=== PATIENT | female | born 1975 | race American Indian/Alaskan Native ===

== ENCOUNTER 2017-10-04 06:24 | Emergency (ER) | payer MEDICAID ==
[2017-10-04 07:51] LABS: Basophils % (Auto) 0.9 % (0.0-1.8); Eosinophils # (Auto) 0.1 K/mm3 (0.0-0.4); Eosinophils % (Auto) 1.7 % (0.0-4.3); Hematocrit 44.2 % (30.3-42.9); Hemoglobin 14.6 gm/dl (10.1-14.3); Lymphocytes # (Auto) 1.9 K/mm3 (1.2-5.4); Lymphocytes % (Auto) 38.5 % (13.4-35.0); Mean Corpuscular HGB Conc 33 % (30-34); Mean Corpuscular Hemoglobin 27 pg (28-32); Mean Corpuscular Volume 83 fl (79-97); Monocytes # (Auto) 0.4 K/mm3 (0.0-0.8); Monocytes % (Auto) 7.6 % (0.0-7.3); Platelet Count 298 K/mm3 (140-440); Red Blood Count 5.31 M/mm3 (3.65-5.03); Red Cell Distribution Width 14.9 % (13.2-15.2)
[2017-10-04 08:04] LABS: BUN/Creatinine Ratio 17; Blood Urea Nitrogen 12 mg/dL (7-17); Calcium 8.9 mg/dL (8.4-10.2); Hemolysis Index 27
[2017-10-04 08:17] LABS: Bilirubin,Urine NEG (Negative); Blood,Urine LG (Negative); Color,Urine Yellow (Yellow); Mucus,Urine 2+ /HPF; Protein,Urine <15 mg/dL mg/dL (Negative); Urobilinogen,Urine < 2.0 mg/dL (<2.0)
[2017-10-04 08:19] LABS: RBC,Urine > 182.0 /HPF (0.0-6.0)
[2017-10-04 08:33] LABS: HCG Qualitative,Urine Negative (Negative)
[2017-10-04] MEDS ORDERED: CATAPRES PO ONE (10:22)
--- NOTE | 2017-10-04 11:26 | Emergency Department Report ---
HPI - General Chief Complaint: High BP Time Seen by Provider: 10/04/17 10:21 - HPI HPI: Room 3 The patient is a 42-year-old female presenting with a chief complaint of hypertension and headache. The patient states she went to her physician's office yesterday and was told her blood pressure is elevated. The patient states she is instructed to come to the emergency department. The patient states this morning she awakened with slight headache and felt somewhat foggy and decided to come in for evaluation. A craig admits to nausea but denies vomiting. Patient denies fever. The patient gets her pain is scored 3/10. The patient states she had been off of her blood pressure medication for approximately 2-3 months. Location: [See above] Duration: [See above] Quality: Headache Severity: 3/10 Modifying factors: [see above] Context: [see above] Mode of transportation: Unknown ED Past Medical Hx - Past Medical History Previous Medical History?: Yes Hx Hypertension: Yes Hx Arthritis: Yes (left knee) Additional medical history: Morbid obesity, Albert heel spurs, Diverticulosis - Surgical History Past Surgical History?: Yes Hx Cholecystectomy: Yes Additional Surgical History: x 2 - Family History Family history: no significant - Social History Smoking Status: Never Smoker Substance Use Type: Prescribed - Medications Home Medications: Home Medications Medication Instructions Recorded Confirmed Last Taken Type Losartan [Cozaar] 100 mg PO QDAY #60 tablet 10/04/17 Unknown Rx amLODIPine [Norvasc] 10 mg PO DAILY #60 tab 10/04/17 Unknown Rx ED Review of Systems ROS: Stated complaint: HIGH BLOOD PRESSURE Other details as noted in HPI Constitutional: denies: fever Eyes: denies: eye pain ENT: denies: throat pain Cardiovascular: denies: chest pain Gastrointestinal: nausea. denies: abdominal pain, vomiting Genitourinary: denies: dysuria Musculoskeletal: denies: back pain Neurological: headache Physical Exam - Physical Exam Vital Signs: Vital Signs 10/04/17 10/04/17 10/04/17 07:23 09:27 09:28 Temperature 97.8 F Pulse Rate 77 68 Respiratory 14 16 Rate Blood Pressure 171/109 Blood Pressure 200/132 [Left] O2 Sat by Pulse 98 100 Oximetry Vital Signs 10/04/17 10/04/17 10/04/17 07:23 09:27 09:28 Temperature 97.8 F Pulse Rate 77 68 Respiratory 14 16 Rate Blood Pressure 171/109 Blood Pressure 200/132 [Left] O2 Sat by Pulse 98 100 Oximetry 10/04/17 10/04/17 10:34 12:09 Temperature Pulse Rate 70 Respiratory Rate Blood Pressure 172/131 Blood Pressure 119/90 [Left] O2 Sat by Pulse Oximetry Physical Exam: GENERAL: The patient is well-developed well-nourished female lying on stretcher not appearing to be in acute distress. [] HEENT: Normocephalic. Atraumatic. Extraocular motions are intact. Patient has moist mucous membranes. NECK: Supple. No meningitic signs are noted. Trachea midline CHEST/LUNGS: Clear to auscultation. There is no respiratory distress noted. HEART/CARDIOVASCULAR: Regular. There is no tachycardia. There is no gallop rub or murmur. ABDOMEN: Abdomen is soft, nontender. Patient has normal bowel sounds. There is no abdominal distention. SKIN: There is no rash. There is no edema. There is no diaphoresis. NEURO: The patient is awake, alert, and oriented. The patient is cooperative. The patient has no focal neurologic deficits. The patient has normal speech. Cranial nerves II through XII grossly intact, no drift MUSCULOSKELETAL: There is no evidence of acute injury. ED Course Vital Signs 10/04/17 10/04/17 10/04/17 07:23 09:27 09:28 Temperature 97.8 F Pulse Rate 77 68 Respiratory 14 16 Rate Blood Pressure 171/109 Blood Pressure 200/132 [Left] O2 Sat by Pulse 98 100 Oximetry ED Medical Decision Making - Lab Data Result diagrams: 10/04/17 07:46 10/04/17 07:42 Laboratory Tests 10/04/17 10/04/17 10/04/17 07:42 07:45 07:46 WBC 4.9 RBC 5.31 H Hgb 14.6 H Hct 44.2 H MCV 83 MCH 27 L MCHC 33 RDW 14.9 Plt Count 298 Lymph % (Auto) 38.5 H [place] % (Auto) 7.6 H Eos % (Auto) 1.7 Baso % (Auto) 0.9 Lymph # 1.9 [place] # 0.4 Eos # 0.1 Baso # 0.0 Seg Neutrophils % 51.3 Seg Neutrophils # 2.5 Sodium 137 Potassium 4.3 Chloride 99.6 Carbon Dioxide 22 Anion Gap 20 BUN 12 Creatinine 0.7 Estimated GFR > 60 BUN/Creatinine Ratio 17 Glucose 106 H Calcium 8.9 Urine Color Yellow Urine Turbidity Clear Urine pH 5.0 Ur Specific [place] 1.017 Urine Protein <15 mg/dl Urine Glucose (UA) Neg Urine Ketones Neg Urine Blood Lg Urine Nitrite Neg Urine Bilirubin Neg Urine Urobilinogen < 2.0 Ur Leukocyte Esterase Neg Urine WBC (Auto) 22.0 H Urine RBC (Auto) > 182.0 U Epithel Cells (Auto) 2.0 Urine Mucus 2+ Urine HCG, Qual Negative - EKG Data -: EKG Interpreted by Ms EKG shows normal: sinus rhythm Rate: normal - EKG Data When compared to previous EKG there are: previous EKG unavailable Interpretation: nonspecific ST-T wave gen (flattened T-wave in lead 3) - Radiology Data Radiology results: report reviewed (CT head), image reviewed (CT head) [facility] [address] [place] [address] Cat Scan Report Signed Patient: MAHI ZIMMER MR#: [id number] : 1975 Acct:[id number] Age/Sex: 42 / F ADM Date: 10/04/17 Loc: ED Attending Dr: Ordering Physician: MERLY FREEMAN MD Date of Service: 10/04/17 Procedure(s): CT head/brain wo con Accession Number(s): [id number] cc: MERLY FREEMAN MD CRANIAL CT SCAN: Hypertension; headache. Serial contiguous axial images were obtained through the cranium. Intravenous contrast material was not administered. The ventricles are normal in size and appearance. There is no mass effect or midline shift. No areas of abnormally increased or decreased attenuation are seen. No mass lesion is seen. The mastoid air cells and visualized portions of the sinuses are normal. IMPRESSION: Cranial CT scan within normal limits. Transcribed By: [facility] Dictated By: GERALD JENKINS MD Electronically Authenticated By: GERALD JENKINS MD Signed Date/Time: 10/04/171123 DD/DT: 1123 TD/TT: 10/04/171123 - Differential Diagnosis hypertensive urgency, headache, ICH Critical care attestation.: If time is entered above; I have spent that time in minutes in the direct care of this critically ill patient, excluding procedure time. ED Disposition Clinical Impression: Hypertension, Headache Disposition: DC-01 TO HOME OR SELFCARE Is pt being admited?: No Does the pt Need Aspirin: No Condition: Stable Instructions: Hypertension (ED) Additional Instructions: Return to the emergency department immediately should you develop worsening symptoms, fever, inability to tolerate food or liquid or any other concerns. Prescriptions: amLODIPine [Norvasc] 10 mg PO DAILY #60 tab Losartan [Cozaar] 100 mg PO QDAY #60 tablet Referrals: PRIMARY CARE, [Primary Care Provider] - [place] (Please follow up with your primary physician for further management of her blood pressure) Time of Disposition: 12:10
--- NOTE | 2017-10-04 11:47 | Cat Scan Report ---
CRANIAL CT SCAN: Hypertension; headache. Serial contiguous axial images were obtained through the cranium. Intravenous contrast material was not administered. The ventricles are normal in size and appearance. There is no mass effect or midline shift. No areas of abnormally increased or decreased attenuation are seen. No mass lesion is seen. The mastoid air cells and visualized portions of the sinuses are normal. IMPRESSION: Cranial CT scan within normal limits.
[2017-10-04 12:11] VITALS: BP 119/90
== END 2017-10-04 12:37 | disposition home or self-care (01) ==
LOC: ED 06:24
DX: I10 Essential (primary) hypertension (principal); M13.862 Other specified arthritis, left knee
CPT/HCPCS: 36415; 70450; 80048; 81001; 81025; 85025; 93005; 93010; 99284

== ENCOUNTER 2017-10-20 18:33 | Emergency (ER) | payer MEDICAID ==
[2017-10-20] MEDS ORDERED: NACL 0.9% 1000 ML 1,000 ML IV ONE ×2 (18:59→23:59)
[2017-10-20 19:47] LABS: Bilirubin,Urine NEG (Negative); Blood,Urine MOD (Negative); Color,Urine Yellow (Yellow); Mucus,Urine FEW /HPF; Protein,Urine <15 mg/dL mg/dL (Negative)
[2017-10-20 19:59] LABS: Basophils # (Auto) 0.1 K/mm3 (0.0-0.1); Basophils % (Auto) 0.5 % (0.0-1.8); Eosinophils % (Auto) 0.4 % (0.0-4.3); Hematocrit 44.2 % (30.3-42.9); Hemoglobin 14.8 gm/dl (10.1-14.3); Lymphocytes # (Auto) 2.4 K/mm3 (1.2-5.4); Mean Corpuscular HGB Conc 34 % (30-34); Mean Corpuscular Hemoglobin 28 pg (28-32); Mean Corpuscular Volume 84 fl (79-97); Monocytes # (Auto) 0.9 K/mm3 (0.0-0.8); Monocytes % (Auto) 8.3 % (0.0-7.3); Platelet Count 245 K/mm3 (140-440); Red Blood Count 5.25 M/mm3 (3.65-5.03); Red Cell Distribution Width 14.5 % (13.2-15.2)
[2017-10-20 20:25] LABS: BUN/Creatinine Ratio 17; Blood Urea Nitrogen 12 mg/dL (7-17); Calcium 9.2 mg/dL (8.4-10.2)
[2017-10-20 20:26] LABS: Alanine Aminotransferase 12 units/L (7-56); Albumin 3.9 g/dL (3.9-5); Hemolysis Index 1
--- NOTE | 2017-10-20 22:24 | Emergency Department Report ---
ED Abdominal Pain HPI - General Chief Complaint: Abdominal Pain Stated Complaint: ADOMINAL PAIN Time Seen by Provider: 10/20/17 21:52 Source: patient Mode of arrival: Ambulatory Limitations: No Limitations - History of Present Illness Initial Comments: Ms vargas is a 42 year-old woman with hx of HTN and diverticulosis who presents with 2-3 days of abdominal pain. Lower abdomen, no radiation. No fever. No BMs. Yes nausea, no vomiting. Some urinary urgency, no burning. Hx of . No recent abx. No vaginal d/c. MD Complaint: abdominal pain -: Gradual Location: LLQ, RLQ Radiation: none Migration to: no migration Severity: moderate Quality: aching Consistency: constant Improves With: nothing Worsens With: nothing Associated Symptoms: nausea, constipation. denies: vomiting, diarrhea - Related Data Previous Rx's Medication Instructions Recorded Last Taken Type Losartan [Cozaar] 100 mg PO QDAY #60 tablet 10/04/17 Unknown Rx amLODIPine [Norvasc] 10 mg PO DAILY #60 tab 10/04/17 Unknown Rx Allergies Allergy/AdvReac Type Severity Reaction Status Date / Time No Known Allergies Allergy Unverified 10/04/17 07:22 ED Review of Systems ROS: Stated complaint: ADOMINAL PAIN Other details as noted in HPI Comment: All other systems reviewed and negative ED Past Medical Hx - Past Medical History Hx Hypertension: Yes Hx Arthritis: Yes (left knee) Additional medical history: Morbid obesity, Albert heel spurs, Diverticulosis - Surgical History Hx Cholecystectomy: Yes Additional Surgical History: x 2 - Social History Smoking Status: Never Smoker Substance Use Type: None - Medications Home Medications: Home Medications Medication Instructions Recorded Confirmed Last Taken Type Losartan [Cozaar] 100 mg PO QDAY #60 tablet 10/04/17 Unknown Rx amLODIPine [Norvasc] 10 mg PO DAILY #60 tab 10/04/17 Unknown Rx ED Physical Exam - General Limitations: No Limitations General appearance: alert, in no apparent distress - Head Head exam: Present: atraumatic, normocephalic - Eye Eye exam: Present: normal appearance, PERRL, EOMI - ENT ENT exam: Present: normal exam, mucous membranes moist - Neck Neck exam: Present: normal inspection. Absent: tenderness - Respiratory Respiratory exam: Present: normal lung sounds bilaterally. Absent: respiratory distress, wheezes, rales - Cardiovascular Cardiovascular Exam: Present: regular rate, normal rhythm. Absent: systolic murmur, diastolic murmur, rubs, gallop - GI/Abdominal GI/Abdominal exam: Present: soft, tenderness, normal bowel sounds. Absent: distended, guarding, rebound - Extremities Exam Extremities exam: Present: normal inspection - Back Exam Back exam: Present: normal inspection. Absent: CVA tenderness (R) - Neurological Exam Neurological exam: Present: alert, oriented X3 - Psychiatric Psychiatric exam: Present: normal affect, normal mood - Skin Skin exam: Present: warm, dry, intact, normal color. Absent: rash ED Course Vital Signs 10/20/17 10/20/17 10/20/17 18:54 21:58 22:00 Temperature 97.9 F 97.5 F L Pulse Rate 118 H 96 H Respiratory 18 18 Rate Blood Pressure 141/115 130/88 Blood Pressure 135/98 [Left] O2 Sat by Pulse 96 97 98 Oximetry 10/20/17 23:00 Temperature Pulse Rate Respiratory Rate Blood Pressure 131/91 Blood Pressure [Left] O2 Sat by Pulse 97 Oximetry ED Medical Decision Making - Lab Data Result diagrams: 10/20/17 19:31 10/20/17 19:31 - Radiology Data Radiology results: report reviewed PROCEDURE: CT ABDOMEN PELVIS W CON TECHNIQUE: Computerized axial tomography of the abdomen and pelvis was performed after the IV injection of iodinated nonionic contrast. HISTORY: abdominal pain COMPARISON: No prior studies are available for comparison. FINDINGS: Visualized lower thorax: No significant abnormality. Liver: Normal size and attenuation. Spleen: Normal size and attenuation. Gallbladder and biliary system: There has been a cholecystectomy. The bile ducts are normal in caliber.. Pancreas: Normal. Adrenals: Normal. Kidneys: Normal. GI tract: There is focal mucosal thickening of the sigmoid colon with induration of the surrounding fat suggesting focal acute colitis or diverticulitis. Underlying mass not excluded. There is no obstruction or perforation. The stomach, small bowel and appendix are normal.. Lymph nodes and mesentery: Normal. Vasculature: Normal. Bladder: Normal. Reproductive organs: Uterus and ovaries are unremarkable. Peritoneum: There is no ascites or free air, abscess or adenopathy.. Musculoskeletal structures: No significant abnormality. Other: None. IMPRESSION: There has been a cholecystectomy. The bile ducts are normal in caliber.. There is focal mucosal thickening of the sigmoid colon with induration of the surrounding fat suggesting focal acute colitis or diverticulitis. Underlying mass not excluded. There is no obstruction or perforation. The stomach, small bowel and appendix are normal.. Uterus and ovaries are unremarkable. There is no ascites or free air, abscess or adenopathy.. - Medical Decision Making ms vargas is a 42 year-old woman with left sided abdominal pain. hx of diverticular disease, feels like diverticulitis. Exam with mild ttp, not peritonitic. ddx constipation vs obstruction vs diverticulitis vs UTI. UA clean. WBC normal. Ct with evidence of diverticulitis. Cipro/flagyl and zofran. Given care instructions, return precautions. Safe for DC to home. Critical care attestation.: If time is entered above; I have spent that time in minutes in the direct care of this critically ill patient, excluding procedure time. ED Disposition Clinical Impression: Acute diverticulitis Disposition: DC-01 TO HOME OR SELFCARE Is pt being admited?: No Condition: Stable Instructions: Abdominal Pain (ED), Diverticulitis (ED) Referrals: DIMITRY DSOUZA MD [Primary Care Provider] - 3-5 Days
[2017-10-20 23:11] LABS: HCG Qualitative,Urine Negative (Negative)
--- NOTE | 2017-10-21 00:39 | Cat Scan Report ---
FINAL REPORT PROCEDURE: CT ABDOMEN PELVIS W CON TECHNIQUE: Computerized axial tomography of the abdomen and pelvis was performed after the IV injection of iodinated nonionic contrast. HISTORY: abdominal pain COMPARISON: No prior studies are available for comparison. FINDINGS: Visualized lower thorax: No significant abnormality. Liver: Normal size and attenuation. Spleen: Normal size and attenuation. Gallbladder and biliary system: There has been a cholecystectomy. The bile ducts are normal in caliber.. Pancreas: Normal. Adrenals: Normal. Kidneys: Normal. GI tract: There is focal mucosal thickening of the sigmoid colon with induration of the surrounding fat suggesting focal acute colitis or diverticulitis. Underlying mass not excluded. There is no obstruction or perforation. The stomach, small bowel and appendix are normal.. Lymph nodes and mesentery: Normal. Vasculature: Normal. Bladder: Normal. Reproductive organs: Uterus and ovaries are unremarkable. Peritoneum: There is no ascites or free air, abscess or adenopathy.. Musculoskeletal structures: No significant abnormality. Other: None. IMPRESSION: There has been a cholecystectomy. The bile ducts are normal in caliber.. There is focal mucosal thickening of the sigmoid colon with induration of the surrounding fat suggesting focal acute colitis or diverticulitis. Underlying mass not excluded. There is no obstruction or perforation. The stomach, small bowel and appendix are normal.. Uterus and ovaries are unremarkable. There is no ascites or free air, abscess or adenopathy..
[2017-10-21] MEDS ORDERED: LEVAQUIN PO ONE (01:15)
[2017-10-21] MEDS ORDERED: FLAGYL PO ONE (01:16)
[2017-10-21 01:19] VITALS: BP 136/82
== END 2017-10-21 01:35 | disposition home or self-care (01) ==
LOC: ED 18:33
DX: K57.92 Diverticulitis of intestine, part unspecified, without perforation or abscess without bleeding (principal); I10 Essential (primary) hypertension; Z90.49 Acquired absence of other specified parts of digestive tract
CPT/HCPCS: 36415; 74177; 80053; 81001; 81025; 85025; 96360; 99284; J7030; Q9967

== ENCOUNTER 2017-10-31 13:16 | Emergency (ER) | payer MEDICAID ==
[2017-10-31] MEDS ORDERED: ZOFRAN ODT ONE (13:42)
[2017-10-31] MEDS: ZOFRAN ODT PO ONE (13:46)
[2017-10-31 15:37] LABS: Basophils % (Auto) 0.4 % (0.0-1.8); Eosinophils % (Auto) 0.2 % (0.0-4.3); Hematocrit 44.7 % (30.3-42.9); Hemoglobin 14.8 gm/dl (10.1-14.3); Lymphocytes # (Auto) 1.3 K/mm3 (1.2-5.4); Lymphocytes % (Auto) 13.3 % (13.4-35.0); Mean Corpuscular HGB Conc 33 % (30-34); Mean Corpuscular Hemoglobin 28 pg (28-32); Mean Corpuscular Volume 84 fl (79-97); Monocytes # (Auto) 0.5 K/mm3 (0.0-0.8); Monocytes % (Auto) 5.1 % (0.0-7.3); Platelet Count 379 K/mm3 (140-440); Red Blood Count 5.34 M/mm3 (3.65-5.03); Red Cell Distribution Width 14.5 % (13.2-15.2)
[2017-10-31 15:52] LABS: Alanine Aminotransferase 10 units/L (7-56); Albumin 3.9 g/dL (3.9-5); BUN/Creatinine Ratio 26; Blood Urea Nitrogen 18 mg/dL (7-17); Calcium 9.1 mg/dL (8.4-10.2); Hemolysis Index 25; Lipase 10 units/L (13-60)
--- NOTE | 2017-10-31 18:18 | Emergency Department Report ---
ED Abdominal Pain HPI - General Chief Complaint: Abdominal Pain Stated Complaint: ABD PAIN AND LIGHT HEADED Time Seen by Provider: 10/31/17 17:47 Source: patient, family Mode of arrival: Ambulatory Limitations: No Limitations - History of Present Illness Initial Comments: This is a 42-year-old female here complaining of no bowel movement for 4-5 days , lower abdominal pain and nausea with some vomiting since this morning. She says she was recently seen for the same diagnosis with diverticulosis and didn' t finish her antibiotic course. Patient started her menses today. She has a history of hypertension and she is on amlodipine and losartan which she did not take today so she has elevated blood pressure without any symptoms. She was seen 10/21/2017 and treated for diverticulitis with ciprofloxacin, Zofran and Flagyl. MD Complaint: abdominal pain, other (nausea) Onset/Timin -: days(s) Location: LLQ, suprapubic Radiation: none Migration to: no migration Severity scale (0 -10): 8 Quality: cramping, fullness Consistency: intermittent Improves With: nothing Worsens With: nothing Context: other (constipation or bowel infection) Associated Symptoms: nausea, vomiting, constipation. denies: hematochezia, hematuria, anorexia, syncope, other, melena, diarrhea, fever, chills, dysuria, hematemesis Treatments Prior to Arrival: NSAIDs (Aleve) - Related Data LMP Date: 10/31/17 Previous Rx's Medication Instructions Recorded Last Taken Type Losartan [Cozaar] 100 mg PO QDAY #60 tablet 10/04/17 Unknown Rx amLODIPine [Norvasc] 10 mg PO DAILY #60 tab 10/04/17 Unknown Rx Ciprofloxacin HCl [Cipro] 500 mg PO BID 7 Days #14 tablet 10/21/17 Unknown Rx Ondansetron [Zofran Odt] 4 mg PO Q8HR PRN #10 tab.rapdis 10/21/17 Unknown Rx metroNIDAZOLE [Flagyl] 500 mg PO Q8HR 7 Days #21 tablet 10/21/17 Unknown Rx Bisacodyl [Dulcolax] 10 mg PO ONCE 1 Days #2 tab 10/31/17 Unknown Rx Magnesium Citrate [Citrate of 300 ml PO ONCE 1 Days #1 bottle 10/31/17 Unknown Rx Magnesia] Nitrofurantoin [place]/M-Cryst 100 mg PO Q12HR 7 Days #14 capsule 10/31/17 Unknown Rx [Macrobid CAP] Promethazine [Phenergan TAB] 25 mg PO Q8HR PRN #12 tab 10/31/17 Unknown Rx Allergies Allergy/AdvReac Type Severity Reaction Status Date / Time No Known Allergies Allergy Unverified 10/04/17 07:22 ED Review of Systems ROS: Stated complaint: ABD PAIN AND LIGHT HEADED Other details as noted in HPI Constitutional: denies: chills, fever Eyes: denies: eye pain, eye discharge ENT: denies: ear pain, throat pain, congestion Respiratory: denies: cough, shortness of breath, SOB with exertion, SOB at rest , stridor, wheezing Cardiovascular: denies: chest pain, palpitations, edema, syncope Gastrointestinal: abdominal pain, nausea, constipation. denies: diarrhea, hematemesis, melena, hematochezia Genitourinary: denies: urgency, dysuria, frequency, hematuria, discharge Musculoskeletal: denies: back pain, joint swelling, arthralgia, myalgia Skin: denies: rash, lesions Neurological: denies: headache, weakness ED Past Medical Hx - Past Medical History Previous Medical History?: Yes Hx Hypertension: Yes Hx Arthritis: Yes (left knee) Additional medical history: Morbid obesity, Albert heel spurs, Diverticulosis - Surgical History Past Surgical History?: Yes Hx Cholecystectomy: Yes Additional Surgical History: x 2 - Family History Family history: hypertension - Social History Smoking Status: Never Smoker Substance Use Type: None - Medications Home Medications: Home Medications Medication Instructions Recorded Confirmed Last Taken Type Losartan [Cozaar] 100 mg PO QDAY #60 tablet 10/04/17 Unknown Rx amLODIPine [Norvasc] 10 mg PO DAILY #60 tab 10/04/17 Unknown Rx Ciprofloxacin HCl [Cipro] 500 mg PO BID 7 Days #14 tablet 10/21/17 Unknown Rx Ondansetron [Zofran Odt] 4 mg PO Q8HR PRN #10 tab.rapdis 10/21/17 Unknown Rx metroNIDAZOLE [Flagyl] 500 mg PO Q8HR 7 Days #21 tablet 10/21/17 Unknown Rx Bisacodyl [Dulcolax] 10 mg PO ONCE 1 Days #2 tab 10/31/17 Unknown Rx Magnesium Citrate [Citrate of 300 ml PO ONCE 1 Days #1 bottle 10/31/17 Unknown Rx Magnesia] Nitrofurantoin [place]/M-Cryst 100 mg PO Q12HR 7 Days #14 capsule 10/31/17 Unknown Rx [Macrobid CAP] Promethazine [Phenergan TAB] 25 mg PO Q8HR PRN #12 tab 10/31/17 Unknown Rx ED Physical Exam - General Limitations: No Limitations General appearance: alert, in no apparent distress - Head Head exam: Present: atraumatic, normocephalic, normal inspection - Eye Eye exam: Present: normal appearance, PERRL, EOMI Pupils: Present: normal accommodation - ENT ENT exam: Present: normal exam, normal orophraynx, mucous membranes moist - Neck Neck exam: Present: normal inspection, full ROM. Absent: tenderness, lymphadenopathy - Respiratory Respiratory exam: Present: normal lung sounds bilaterally. Absent: respiratory distress, chest wall tenderness - Cardiovascular Cardiovascular Exam: Present: normal rhythm, tachycardia, normal heart sounds. Absent: systolic murmur, diastolic murmur - GI/Abdominal GI/Abdominal exam: Present: soft, distended, normal bowel sounds. Absent: tenderness, guarding, rebound, rigid, organomegaly, mass, bruit, pulsatile mass , hernia - Extremities Exam Extremities exam: Present: normal inspection, full ROM, normal capillary refill , other (no clubbing ,cyanosis or edema. +2 pulses to all extremities and no neurovascular compromise). Absent: tenderness, pedal edema, joint swelling, calf tenderness - Back Exam Back exam: Present: normal inspection - Neurological Exam Neurological exam: Present: alert, oriented X3, normal gait - Psychiatric Psychiatric exam: Present: normal affect, normal mood - Skin Skin exam: Present: warm, dry, intact, normal color. Absent: rash ED Course Vital Signs 10/31/17 10/31/17 10/31/17 13:33 21:10 22:58 Temperature 98.2 F 98.3 F Pulse Rate 113 H 94 H 94 H Respiratory 18 20 Rate Blood Pressure 148/105 Blood Pressure 145/112 [Right] O2 Sat by Pulse 96 99 Oximetry - Reevaluation(s) Reevaluation #1: 10/31/17 18:50 Patient is stable and was seen by Dr. Farley and was given Zofran 4 mg ODT. Still awaiting an IV. Reevaluation #2: 10/31/17 19:51 Unable to get IV on patient to give IV fluid and IV medication. Multiple tries attempted by different nurses with no success. Patient for CT scan of abdomen and pelvis with by mouth contrast only due to lack of IV access. She is to receive Percocet 08/3351 tablets by mouth. Abdominal exam remains the same. Reevaluation #3: 10/31/17 21:02 Patient is stable and no change in abdominal assessment. Her pain is controlled. Await and CT scan of abdomen and pelvis. She completed her by mouth contrast. Patient was given Percocet 2 tablets by mouth which relieved her pain. Vital signs are stable, she is afebrile and no change in abdominal assessment. Patient tolerated 2 cups of juice and one cup of water after CT scan done and resulted without any nausea or vomiting. ED Medical Decision Making - Lab Data Result diagrams: 10/31/17 15:00 10/31/17 15:00 Lab Results 10/31/17 10/31/17 10/31/17 Range/Units 15:00 15:00 15:00 WBC 9.6 (4.5-11.0) K/mm3 RBC 5.34 H (3.65-5.03) M/mm3 Hgb 14.8 H (10.1-14.3) gm/dl Hct 44.7 H (30.3-42.9) % MCV 84 (79-97) fl MCH 28 (28-32) pg MCHC 33 (30-34) % RDW 14.5 (13.2-15.2) % Plt Count 379 (140-440) K/mm3 Lymph % (Auto) 13.3 L (13.4-35.0) % [place] % (Auto) 5.1 (0.0-7.3) % Eos % (Auto) 0.2 (0.0-4.3) % Baso % (Auto) 0.4 (0.0-1.8) % Lymph # 1.3 (1.2-5.4) K/mm3 [place] # 0.5 (0.0-0.8) K/mm3 Eos # 0.0 (0.0-0.4) K/mm3 Baso # 0.0 (0.0-0.1) K/mm3 Seg Neutrophils % 81.0 H (40.0-70.0) % Seg Neutrophils # 7.8 H (1.8-7.7) K/mm3 Sodium 138 (137-145) mmol/L Potassium 3.9 (3.6-5.0) mmol/L Chloride 96.8 L (98-107) mmol/L Carbon Dioxide 23 (22-30) mmol/L Anion Gap 22 mmol/L BUN 18 H (7-17) mg/dL Creatinine 0.7 (0.7-1.2) mg/dL Estimated GFR > 60 ml/min BUN/Creatinine Ratio 26 % Glucose 121 H (65-100) mg/dL Calcium 9.1 (8.4-10.2) mg/dL Total Bilirubin 0.50 (0.1-1.2) mg/dL AST 16 (5-40) units/L ALT 10 (7-56) units/L Alkaline Phosphatase 81 (35-129) units/L Total Protein 7.0 (6.3-8.2) g/dL Albumin 3.9 (3.9-5) g/dL Albumin/Globulin Ratio 1.3 % Lipase 10 L (13-60) units/L HCG, Qual Negative (Negative) Urine Color (Yellow) Urine Turbidity (Clear) Urine pH (5.0-7.0) Ur Specific [place] (1.003-1.030) Urine Protein (Negative) mg/dL Urine Glucose (UA) (Negative) mg/dL Urine Ketones (Negative) mg/dL Urine Blood (Negative) Urine Nitrite (Negative) Urine Bilirubin (Negative) Urine Ictotest (Negative) Urine Urobilinogen (<2.0) mg/dL Ur Leukocyte Esterase (Negative) Urine WBC (Auto) (0.0-6.0) /HPF Urine RBC (Auto) (0.0-6.0) /HPF U Epithel Cells (Auto) (0-13.0) /HPF Urine Mucus /HPF 10/31/17 Range/Units Unknown WBC (4.5-11.0) K/mm3 RBC (3.65-5.03) M/mm3 Hgb (10.1-14.3) gm/dl Hct (30.3-42.9) % MCV (79-97) fl MCH (28-32) pg MCHC (30-34) % RDW (13.2-15.2) % Plt Count (140-440) K/mm3 Lymph % (Auto) (13.4-35.0) % [place] % (Auto) (0.0-7.3) % Eos % (Auto) (0.0-4.3) % Baso % (Auto) (0.0-1.8) % Lymph # (1.2-5.4) K/mm3 [place] # (0.0-0.8) K/mm3 Eos # (0.0-0.4) K/mm3 Baso # (0.0-0.1) K/mm3 Seg Neutrophils % (40.0-70.0) % Seg Neutrophils # (1.8-7.7) K/mm3 Sodium (137-145) mmol/L Potassium (3.6-5.0) mmol/L Chloride (98-107) mmol/L Carbon Dioxide (22-30) mmol/L Anion Gap mmol/L BUN (7-17) mg/dL Creatinine (0.7-1.2) mg/dL Estimated GFR ml/min BUN/Creatinine Ratio % Glucose (65-100) mg/dL Calcium (8.4-10.2) mg/dL Total Bilirubin (0.1-1.2) mg/dL AST (5-40) units/L ALT (7-56) units/L Alkaline Phosphatase (35-129) units/L Total Protein (6.3-8.2) g/dL Albumin (3.9-5) g/dL Albumin/Globulin Ratio % Lipase (13-60) units/L HCG, Qual (Negative) Urine Color María (Yellow) Urine Turbidity Clear (Clear) Urine pH 5.0 (5.0-7.0) Ur Specific [place] 1.034 H (1.003-1.030) Urine Protein 100 mg/dl (Negative) mg/dL Urine Glucose (UA) Neg (Negative) mg/dL Urine Ketones 20 (Negative) mg/dL Urine Blood Lg (Negative) Urine Nitrite Neg (Negative) Urine Bilirubin Sm (Negative) Urine Ictotest Negative (Negative) Urine Urobilinogen 4.0 (<2.0) mg/dL Ur Leukocyte Esterase Tr (Negative) Urine WBC (Auto) 20.0 H (0.0-6.0) /HPF Urine RBC (Auto) > 182.0 (0.0-6.0) /HPF U Epithel Cells (Auto) 2.0 (0-13.0) /HPF Urine Mucus 2+ /HPF Urine culture sent She has a large amount of blood in her urine due to the fact that she started her menses today. - Radiology Data Radiology results: report reviewed Patient: MAHI ZIMMER MR#: [id number] : 1975 Acct:[id number] Age/Sex: 42 / F ADM Date: 10/31/17 Loc: ED Attending Dr: Ordering Physician: JEFF SCHAEFER Date of Service: 10/31/17 Procedure(s): CT abdomen pelvis wo con Accession Number(s): [id number] cc: JEFF SCHAEFER FINAL REPORT PROCEDURE: CT ABDOMEN PELVIS WO CON TECHNIQUE: Computerized axial tomography of the abdomen and pelvis was performed without intravenous contrast. This study is performed without intravascular contrast material and its sensitivity for abdominal and pelvic pathology, including neoplasms, inflammation, abscess, free fluid, thrombosis, arterial dissection and infarction, is reduced compared with a contrast enhanced study. HISTORY: lower abdominal pain with h/o diverticulitis COMPARISON: No prior studies are available for comparison. FINDINGS: Visualized lower thorax: No significant abnormality. Liver: Normal size and attenuation. Spleen: Normal size and attenuation. Gallbladder and biliary system: There has been a cholecystectomy. The bile ducts are normal in caliber.. Pancreas: Normal. Adrenals: Normal. Kidneys: There are no kidney stones or ureteral stones. There is no hydronephrosis.. GI tract: There is a large amount of stool in the colon. There is no obstruction or fecal impaction. There is no bowel wall thickening to suggest colitis. The stomach and small bowel are unremarkable. The appendix is normal.. Lymph nodes and mesentery: Normal. Vasculature: Normal. Bladder: Normal. Reproductive organs: There is a fibroid at the uterine fundus measuring 7 centimeters.. Peritoneum: There is no ascites or free air, abscess or adenopathy.. Musculoskeletal structures: No significant abnormality. Other: None. IMPRESSION: There has been a cholecystectomy. The bile ducts are normal in caliber.. There are no kidney stones or ureteral stones. There is no hydronephrosis.. There is a large amount of stool in the colon. There is no obstruction or fecal impaction. There is no bowel wall thickening to suggest colitis. The stomach and small bowel are unremarkable. The appendix is normal.. There is a fibroid at the uterine fundus measuring 7 centimeters.. There is no ascites or free air, abscess or adenopathy.. . Transcribed By: CO Dictated By: SUSHIL LEBLANC MD Electronically Authenticated By: SUSHIL LEBLANC MD Signed Date/Time: 10/31/172199 DD/ 99 TD/TT: 10/31/172199 - Medical Decision Making This is a 42-year-old female here complaining of no bowel movement for 4-5 days , lower abdominal pain and nausea with some vomiting since this morning. She says she was recently seen for the same diagnosis with diverticulosis and didn' t finish her antibiotic course. Patient started her menses today. She is due to be examined. Patient was screened and seen by myself. Physical exam is normal except she has distended abdomen without any tenderness and has normal bowel sounds. CBC and CMP within normal limits. Urinalysis with 100 protein, large amount of blood because she started her menses today. Positive leukocyte Estrace and white blood cell. No bacteria. Urine culture sent. test is negative. CT scan of the abdomen and pelvis with by mouth contrast shows large amount of stool in colon. No obstruction or fecal impaction. No bowel wall thickening to suggest colitis. The stomach and small bowel are unremarkable and appendix is normal. Positive fibroid and uterus. No ascites, abscess, adenopathy or free air. I discussed laboratory results, CT findings with patient and she voiced understanding. Patient given pain medication and nausea medication which was resolved her pain and nausea. Unable to get IV on patient despite multiple attempts so she was challenged with by mouth fluid after nausea resolved and she is able to tolerate well. A/P 1: The patient-CT scan of abdomen and pelvis appear contrast shows large amount of stool in colon. Positive distention of abdomen. will be discharged home on Dulcolax and magnesium citrate 2: Abdominal pain-patient went positive constipation and negative for diverticulitis. CBC, CMP stable, test is negative. Patient received morphine 4 mg IM and Percocet 5/52 tablets when necessary emergency room which resolved her pain. I will refer her to boil off machine operator cloth 3: Acute cystitis with hematuria-urine culture sent, urinalysis positive for leukocyte esterase, large amount of blood but she is on her menses, white blood cell, protein. Patient will be discharged home on Macrobid. 4: Nausea alone-tolerating by mouth liquids well, patient given Zofran 4 mg ODT which resolved nausea and will be discharged home on Phenergan. 5: Uterine fibroid-will referred to INDUSTRIAL MANUFACTURING TECHNICIAN. This was found on CT scan of the abdomen and pelvis. Patient education and diagnosis, laboratory findings, medication, high fiber diet, increase in fluids. She voiced understanding. Pt referred to INDUSTRIAL MANUFACTURING TECHNICIAN to manage fibroid and gastroenterology for abdominal pain , nausea and constipation. Discussed with her that she is to follow-up with her primary care physician but she does have one. Patient discharged home with her in stable condition. Her vital signs are stable she is afebrile. Patient is able to tolerate oral liquids. She said her pain and nausea has been resolved. I discussed with her if she develops turning symptoms that is not controlled with medication to return to emergency room [place] otherwise follow-up with primary care physician in 2 days, INDUSTRIAL MANUFACTURING TECHNICIAN and gastroenterology. Patient discharged home with prescription for magnesium citrate, Dulcolax tablet, Macrobid and Phenergan. - Differential Diagnosis bowel obstruction, lipoma,, colitis, constipation, UTI, Critical care attestation.: If time is entered above; I have spent that time in minutes in the direct care of this critically ill patient, excluding procedure time. ED Disposition Clinical Impression: Nausea alone, Acute cystitis with hematuria Abdominal pain Qualifiers: Abdominal location: unspecified location Qualified Code(s): R10.9 - Unspecified abdominal pain Constipation Qualifiers: Constipation type: unspecified constipation type Qualified Code(s): K59.00 - Constipation, unspecified Uterine fibroid Qualifiers: Uterine leiomyoma location: unspecified location Qualified Code(s): D25.9 - Leiomyoma of uterus, unspecified Disposition: DC- TO HOME OR SELFCARE Is pt being admited?: No Does the pt Need Aspirin: No Condition: Stable Instructions: Uterine Fibroids (ED), Constipation (ED), Urinary Tract Infection in Women (ED), High Fiber Diet (ED), Acute Nausea and Vomiting (ED), Abdominal Pain (ED) Additional Instructions: Please see discharge instruction and high-fiber diet Take Dulcolax and Maxitrol for constipation Take Macrobid for urinary tract infection Take Phenergan for nausea but 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 If symptoms worsens, return to emergency room Please increase her fluid intake to 2 L of water daily. Prescriptions: Bisacodyl [Dulcolax] 10 mg PO ONCE 1 Days #2 tab Magnesium Citrate [Citrate of Magnesia] 300 ml PO ONCE 1 Days #1 bottle Nitrofurantoin [place]/M-Cryst [Macrobid CAP] 100 mg PO Q12HR 7 Days #14 capsule Promethazine [Phenergan TAB] 25 mg PO Q8HR PRN #12 tab PRN Reason: Nausea Referrals: PRIMARY CAREMD [Primary Care Provider] - 11/02/17 [facility] [Provider Group] - 11/02/17 [facility] [Provider [facility]] - 11/02/17 Forms: Accompanied Note, Work/School Release Form(ED)
[2017-10-31] MEDS: PERCOCET 5/325 PO ONE (20:00)
[2017-10-31] MEDS: NACL 0.9% 1000 ML 1,000 ML IV ONE (20:01)
[2017-10-31] MEDS: ZOFRAN IV ONE (20:02)
[2017-10-31] MEDS: MORPHINE IM ONE (20:03)
[2017-10-31 21:43] LABS: Bilirubin,Urine SM (Negative); Blood,Urine LG (Negative); Color,Urine Amber (Yellow); Mucus,Urine 2+ /HPF
[2017-10-31 21:44] LABS: RBC,Urine > 182.0 /HPF (0.0-6.0)
[2017-10-31 21:47] LABS: Ictotest,Urine Negative (Negative)
--- NOTE | 2017-10-31 22:04 | Cat Scan Report ---
FINAL REPORT PROCEDURE: CT ABDOMEN PELVIS WO CON TECHNIQUE: Computerized axial tomography of the abdomen and pelvis was performed without intravenous contrast. This study is performed without intravascular contrast material and its sensitivity for abdominal and pelvic pathology, including neoplasms, inflammation, abscess, free fluid, thrombosis, arterial dissection and infarction, is reduced compared with a contrast enhanced study. HISTORY: lower abdominal pain with h/o diverticulitis COMPARISON: No prior studies are available for comparison. FINDINGS: Visualized lower thorax: No significant abnormality. Liver: Normal size and attenuation. Spleen: Normal size and attenuation. Gallbladder and biliary system: There has been a cholecystectomy. The bile ducts are normal in caliber.. Pancreas: Normal. Adrenals: Normal. Kidneys: There are no kidney stones or ureteral stones. There is no hydronephrosis.. GI tract: There is a large amount of stool in the colon. There is no obstruction or fecal impaction. There is no bowel wall thickening to suggest colitis. The stomach and small bowel are unremarkable. The appendix is normal.. Lymph nodes and mesentery: Normal. Vasculature: Normal. Bladder: Normal. Reproductive organs: There is a fibroid at the uterine fundus measuring 7 centimeters.. Peritoneum: There is no ascites or free air, abscess or adenopathy.. Musculoskeletal structures: No significant abnormality. Other: None. IMPRESSION: There has been a cholecystectomy. The bile ducts are normal in caliber.. There are no kidney stones or ureteral stones. There is no hydronephrosis.. There is a large amount of stool in the colon. There is no obstruction or fecal impaction. There is no bowel wall thickening to suggest colitis. The stomach and small bowel are unremarkable. The appendix is normal.. There is a fibroid at the uterine fundus measuring 7 centimeters.. There is no ascites or free air, abscess or adenopathy.. .
[2017-10-31 22:59] VITALS: BP 145/112
== END 2017-10-31 23:15 | disposition home or self-care (01) ==
LOC: ED 13:16
DX: N30.01 Acute cystitis with hematuria (principal); K59.00 Constipation, unspecified; D25.9 Leiomyoma of uterus, unspecified; I10 Essential (primary) hypertension; Z90.49 Acquired absence of other specified parts of digestive tract
CPT/HCPCS: 36415; 74176; 80053; 81001; 83690; 84703; 85025; 87086; 99284; J7030; Q0162